=== PATIENT | male | born 1995 | race Caucasian/White ===

== ENCOUNTER 2021-10-04 02:48 | Emergency (ER) | payer OTHER ==
[2021-10-04 03:27] LABS: RED BLOOD COUNT 5.71 M/UL (4.20-5.50); WHITE BLOOD COUNT 14.4 K/UL (4.5-11.0)
[2021-10-04 04:05] LABS: BUN/CREATININE RATIO 24 (0-10)
[2021-10-04] MEDS ORDERED: ZOFRAN ODT 4 MG4 MG GT (04:42)
== END 2021-10-04 04:48 | disposition home or self-care (01) ==
LOC: ER1 02:48
PROVIDERS: Family Medicine
DX: R11.2 Nausea with vomiting, unspecified (principal); R19.7 Diarrhea, unspecified; F45.8 Other somatoform disorders
CPT/HCPCS: 80053; 81001; 83690; 85025; 93005; 96374; 99284; J2060; J7120